=== PATIENT | female | born 1995 | race African-American/Black ===

== ENCOUNTER 2017-03-01 20:13 | Emergency (ER) | payer MEDICAID ==
[2017-03-01 20:50] VITALS: BP 123/72
== END 2017-03-01 22:47 | disposition left against medical advice (07) ==
LOC: ER 20:13 → EDSEX 20:13 → ER 22:47
DX: Z53.9 Procedure and treatment not carried out, unspecified reason (principal); S89.90XA Unspecified injury of unspecified lower leg, initial encounter; X58.XXXA Exposure to other specified factors, initial encounter

== ENCOUNTER 2017-03-02 18:22 | Emergency (ER) | payer MEDICAID ==
--- NOTE | 2017-03-02 19:54 | ER Document Report ---
HPI - HPI Patient complains to provider of: left knee popped Onset: Yesterday - Evening Onset/Duration: Sudden Quality of pain: Achy, Throbbing Context: 21-year-old female jumped while playing with her nieces in the playground causing her left need a pop in swell since yesterday when it occurred. She is asking for an MRI. She took Motrin last night for pain. She denies her cycles are usually every 6 weeks. Associated Symptoms: None Exacerbated by: Movement, Walking Relieved by: Denies Similar symptoms previously: No Recently seen / treated by doctor: No - ROS ROS below otherwise negative: Yes Systems Reviewed and Negative: Yes All other systems reviewed and negative Past Medical History - General Information source: Patient - Social History Smoking Status: Never Smoker Frequency of alcohol use: None Drug Abuse: None Lives with: Family Family History: Reviewed & Not Pertinent - Medical History Medical History: Negative Renal/ Medical History: Denies: Hx Peritoneal Dialysis Surgical Hx: Negative - Immunizations Immunizations up to date: Yes Vertical Provider Document - CONSTITUTIONAL Agree With Documented VS: Yes Exam Limitations: No Limitations - INFECTION CONTROL TRAVEL OUTSIDE OF THE [place] IN LAST 30 DAYS: No - HEENT HEENT: Normocephalic - NECK Neck: Supple - MUSCULOSKELETAL/EXTREMETIES Musculoskeletal/Extremeties: LISSET, FROM Notes: small effusion by exam, mild tender medial left knee, non tender patellar, tell her tendon intact. 2+ PT - NEURO Level of Consciousness: Awake, Alert Motor/Sensory: No Motor Deficit, No Sensory Deficit - DERM Integumentary: Warm, Dry Course - Re-evaluation Re-evalutation: 03/02/17 21:05 Final radiology report shows moderate effusion with no fracture. The patient would call her if there was anything on the x-ray that the radiologist reported that we did not dicuss. I told her the prelim xray was negative for fx. 03/02/17 21:05 Discharge - Discharge Clinical Impression: left knee injury Condition: Good Disposition: HOME, SELF-CARE Instructions: Knee Immobilizing Splint ([facility]), Knee Effusion ([facility]), Suspected Internal Knee Injury ([facility]), Use of Crutches ([facility]), Acetaminophen Additional Instructions: call and schedule appointment with orthopedic surgeon final xray report tomorrow, prelim is negative for fracture Splint and crutches Elevate your leg when reclined above your heart Return to the emergency room any concerns if you believe you are not , then you can continue ibuprofen for the inflammation, if you change your mind and think you are , take only tylenol for the pain. Please complete the patient satisfaction survey if you get one, and return it.. If you do not receive a survey, then you can go to the [facility] website, [email or web address] and place your comments about your very good care. Thank you very much. It was a pleasure being your medical provider today. Referrals: DANAY ALEX MD [ACTIVE STAFF] - Follow up as needed
[2017-03-02 20:50] VITALS: BP 134/79
== END 2017-03-02 20:50 | disposition home or self-care (01) ==
LOC: ER 18:22
DX: S89.92XA Unspecified injury of left lower leg, initial encounter (principal); M25.462 Effusion, left knee; X58.XXXA Exposure to other specified factors, initial encounter; Y93.39 Activity, other involving climbing, rappelling and jumping off; Y92.838 Other recreation area as the place of occurrence of the external cause
CPT/HCPCS: 99283; 73562; L1830

== ENCOUNTER 2019-08-19 23:10 | Emergency (ER) | payer SELFPAY ==
--- NOTE | 2019-08-20 00:06 | ER Document Report ---
ED ENT - General Chief Complaint: Ear Pain Stated Complaint: RIGHT EAR PAIN Time Seen by Provider: 08/19/19 23:58 TRAVEL OUTSIDE OF THE [place] IN LAST 30 DAYS: No - HPI Notes: 23-year-old female to the emergency department with complaints of right ear irritation for the past 3 days. She states that she thought that maybe it was earwax in her ear and she tried to clean it out. She states that she was using a Q-tip and thinks she may have pushed the wax further into her ear. Now she feels like it is clogged and full and has pressure. She denies any fevers, chills, cough, sore throat, nasal congestion. She denies any other complaints. - Related Data Allergies/Adverse Reactions: No Known Allergies Allergy (Unverified 03/01/17 20:45) Past Medical History - General Information source: Patient - Social History Smoking Status: Never Smoker Frequency of alcohol use: None Drug Abuse: None Family History: Reviewed & Not Pertinent Renal/ Medical History: Denies: Hx Peritoneal Dialysis - Immunizations Immunizations up to date: Yes Review of Systems - Review of Systems Constitutional: denies: Chills, Fever EENT: See HPI, Ear pain Cardiovascular: denies: Chest pain, Syncope, Dizziness, Lightheaded Respiratory: denies: Cough, Short of breath Gastrointestinal: denies: Abdominal pain, Diarrhea, Nausea, Vomiting Musculoskeletal: No symptoms reported Skin: No symptoms reported Neurological/Psychological: denies: Headaches -: Yes All other systems reviewed and negative Physical Exam - Vital signs Vitals: Temp Pulse Resp BP Pulse Ox 97.9 F 84 14 148/90 H 100 08/19/19 23:19 08/19/19 23:19 08/19/19 23:19 08/19/19 23:19 08/19/19 23:19 Interpretation: Normal - General General appearance: Appears well, Alert In distress: None - HEENT Head: Normocephalic, Atraumatic Eyes: Normal Pupils: PERRL Ears: Normal External canal: Cerumen impaction - Bilateral cerumen impaction. Tympanic membrane: Normal Sinus: Normal Nasal: Normal Mouth/Lips: Normal Mucous membranes: Normal Pharynx: Normal Neck: Normal, Supple. No: Lymphadenopathy, Meningismus - Respiratory Respiratory status: No respiratory distress Chest status: Nontender Breath sounds: Normal Chest palpation: Normal - Cardiovascular Rhythm: Regular Heart sounds: Normal auscultation Murmur: No - Neurological Neuro grossly intact: Yes Cognition: Normal Orientation: AAOx4 Rolando Coma Scale Eye Opening: Spontaneous [place] Coma Scale Verbal: Oriented [place] Coma Scale Motor: Obeys Commands [place] Coma Scale Total: 15 Speech: Normal Cranial nerves: Normal Cerebellar coordination: Normal Motor strength normal: LUE, RUE, LLE, RLE Additional motor exam normals: 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 No: Pronator drift Sensory: Normal - Psychological Associated symptoms: Normal affect, Normal mood - Skin Skin Temperature: Warm Skin Moisture: Dry Skin Color: Normal Course - Re-evaluation Re-evalutation: 08/20/19 00:50 Patient with relief with right ear irrigation. Reexam illustrates no otitis media or otitis externa. Offered irrigation of the left ear but patient will decline she states that she will irrigate at home. Will discharge home with Debrox. PCP follow-up. - Vital Signs Vital signs: Temp Pulse Resp BP Pulse Ox 97.9 F 84 14 148/90 H 100 08/19/19 23:19 08/19/19 23:19 08/19/19 23:19 08/19/19 23:19 08/19/19 23:19 Discharge - Discharge Clinical Impression: Impacted cerumen of both ears, Right ear pain Condition: Stable Disposition: HOME, SELF-CARE Instructions: Cerumen Impaction ([facility]) Prescriptions: Carbamide Peroxide [Debrox 6.5 % Otic Drops 15 ml] 10 drop OT DAILY #1 bottle Referrals: [facility] [Provider Group] - Follow up in 1 week
[2019-08-20 01:11] VITALS: BP 136/82
== END 2019-08-20 01:10 | disposition home or self-care (01) ==
LOC: ER 23:10
DX: H61.23 Impacted cerumen, bilateral (principal); H92.01 Otalgia, right ear
CPT/HCPCS: 99282